=== PATIENT | male | born 1995 | race Caucasian/White ===

== ENCOUNTER 2021-06-12 20:04 | Emergency (ER) | payer SELFPAY ==
[~2021-06-12] VITALS: Ht 177.8 cm; Wt 79.4 kg
[2021-06-12 20:17] VITALS: BP 148/67
--- NOTE | 2021-06-12 20:21 | NUR ---
PT TO WAIT IN LOBBY
--- NOTE | 2021-06-12 22:32 | NUR ---
PT TAKEN TO XRAY
--- NOTE | 2021-06-12 22:42 | NUR ---
PT RETURN FROM RADIOLOGY TO ER LOBBY
[2021-06-12] MEDS ORDERED: IBUPROFEN 400 MG TAB PO ONE (22:55)
[2021-06-12] MEDS ORDERED: BACITRACIN OINT 500 UNITS/GM PKT TP ONE (22:55)
[2021-06-12] MEDS ORDERED: BACI-389 TP (23:03)
--- NOTE | 2021-06-12 23:10 | NUR ---
PT TAKEN TO CHAIR B
[2021-06-12 23:20] VITALS: BP 133/77
== END 2021-06-12 23:20 | disposition home or self-care (01) ==
LOC: MED 20:04
DX: S81.841A Puncture wound with foreign body, right lower leg, initial encounter (principal); Z79.899 Other long term (current) drug therapy; X58.XXXA Exposure to other specified factors, initial encounter; Y93.89 Activity, other specified; Y92.89 Other specified places as the place of occurrence of the external cause; Y99.8 Other external cause status
CPT/HCPCS: 73590; 99283